=== PATIENT | male | born 1990 | race Caucasian/White ===

== ENCOUNTER 2021-03-13 03:48 | Emergency (ER) | payer MEDICAID ==
[~2021-03-13] VITALS: Ht 170.2 cm; Wt 83.9 kg
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
[2021-03-13] MEDS ORDERED: NAPR-1009 PO (05:20)
[2021-03-13 05:21] VITALS: BP 124/82
--- NOTE | 2021-03-13 05:21 | NUR ---
Patient discharged to home in stable condition. Written and verbal after care instructions given. Patient verbalizes understanding of instructions. Stressed follow up or return to ER for worsening s/s. VSS. Steady gait. All belongings with patient.
== END 2021-03-13 05:26 | disposition home or self-care (01) ==
LOC: ER 03:51
DX: S39.012A Strain of muscle, fascia and tendon of lower back, initial encounter (principal); V43.52XA Car driver injured in collision with other type car in traffic accident, initial encounter; Y92.410 Unspecified street and highway as the place of occurrence of the external cause; M25.562 Pain in left knee; M25.561 Pain in right knee; E78.5 Hyperlipidemia, unspecified
CPT/HCPCS: 71045; 72110; A4663